=== PATIENT | male | born 1950 | race Caucasian/White ===

== ENCOUNTER 2019-02-11 08:48 | Day surgery (SDC) | payer MEDICARE ==
[~2019-02-11] VITALS: Ht 180.3 cm; Wt 90.7 kg
[~2019-02-11 08:48] MED LIST: CITALOPRAM20 MG PO; LOSARTAN POTASS50 MG PO; MULTI VIT PO
[2019-02-11 10:54] VITALS: BP 127/77
== END 2019-02-11 11:05 | disposition home or self-care (01) ==
LOC: ENDO 08:48
PROVIDERS: ATTEND Surgery
PROC: 0DJD8ZZ Inspection of Lower Intestinal Tract, Via Natural or Artificial Opening Endoscopic (ICD-10-PCS; principal; 2019-02-11)
DX: Z12.11 Encounter for screening for malignant neoplasm of colon (principal); F17.200 Nicotine dependence, unspecified, uncomplicated

== ENCOUNTER → 2019-12-04 | Day surgery (SDC) | payer MEDICARE ==
[~2019-12-04] MED LIST changes: +AMLODIPINE BESY10 MG PO; +CITALOPRAM40 M1 PO; +LIPITOR20 M1 PO; +PERCOCET 10/31 COMBO PO
[2019-12-04 10:49] LABS: COCAINE NEGATIVE (NEGATIVE); TETRAHYDROCANNABIONOL POSITIVE (NEGATIVE)
[2019-12-04 10:50] LABS: BARBITURATES NEGATIVE (NEGATIVE); METHADONE NEGATIVE (NEGATIVE); OXCYCODONE NEGATIVE (NEGATIVE); TRICYLIC ANTIDEPRESSANTS NEGATIVE (NEGATIVE)
== END | disposition home or self-care (01) ==
PROVIDERS: Urology
PROC: 0TBB8ZX Excision of Bladder, Via Natural or Artificial Opening Endoscopic, Diagnostic (ICD-10-PCS; principal; 2019-12-04)
PROC: 0T778DZ Dilation of Left Ureter with Intraluminal Device, Via Natural or Artificial Opening Endoscopic (ICD-10-PCS; 2019-12-04)
DX: C67.8 Malignant neoplasm of overlapping sites of bladder (principal); I10 Essential (primary) hypertension; F17.200 Nicotine dependence, unspecified, uncomplicated
CPT/HCPCS: J0131; J2710; Q9967

== ENCOUNTER 2020-07-29 06:44 | Day surgery (SDC) | payer MEDICARE ==
[2020-07-29 10:20] VITALS: BP 112/69
== END 2020-07-29 10:35 | disposition home or self-care (01) ==
LOC: ORM 06:44
PROVIDERS: ATTEND Urology
PROC: 0TBB8ZX Excision of Bladder, Via Natural or Artificial Opening Endoscopic, Diagnostic (ICD-10-PCS; principal; 2020-07-29)
PROC: 0T778DZ Dilation of Left Ureter with Intraluminal Device, Via Natural or Artificial Opening Endoscopic (ICD-10-PCS; 2020-07-29)
PROC: BT14ZZZ Fluoroscopy of Kidneys, Ureters and Bladder (ICD-10-PCS; 2020-07-29)
PROC: 0W3R8ZZ Control Bleeding in Genitourinary Tract, Via Natural or Artificial Opening Endoscopic (ICD-10-PCS; 2020-07-29)
DX: D09.0 Carcinoma in situ of bladder (principal); I10 Essential (primary) hypertension; F17.200 Nicotine dependence, unspecified, uncomplicated; Z20.828 Contact with and (suspected) exposure to other viral communicable diseases
CPT/HCPCS: Q9967

== ENCOUNTER 2020-11-11 06:08 | Day surgery (SDC) | payer MEDICARE ==
[~2020-11-11] VITALS: Ht 181.6 cm; Wt 95.3 kg
[2020-11-11 09:43] VITALS: BP 104/69
== END 2020-11-11 10:20 | disposition home or self-care (01) ==
LOC: ORM 06:08
PROVIDERS: ATTEND Urology
PROC: 0TBB8ZX Excision of Bladder, Via Natural or Artificial Opening Endoscopic, Diagnostic (ICD-10-PCS; principal; 2020-11-11)
PROC: 0T5B8ZZ Destruction of Bladder, Via Natural or Artificial Opening Endoscopic (ICD-10-PCS; 2020-11-11)
PROC: 3E1K88X Irrigation of Genitourinary Tract using Irrigating Substance, Via Natural or Artificial Opening Endoscopic, Diagnostic (ICD-10-PCS; 2020-11-11)
DX: N30.80 Other cystitis without hematuria (principal); I10 Essential (primary) hypertension; E78.00 Pure hypercholesterolemia, unspecified; F32.9 Major depressive disorder, single episode, unspecified; F17.200 Nicotine dependence, unspecified, uncomplicated; Z85.51 Personal history of malignant neoplasm of bladder; Z20.822 Contact with and (suspected) exposure to COVID-19
CPT/HCPCS: C1769; J0131

== ENCOUNTER 2022-03-15 18:00 | Observation (INO) | payer MEDICARE ==
[~2022-03-15] VITALS: Ht 180.3 cm; Wt 95.0 kg
[2022-03-15 18:26] VITALS: BP 134/77
[2022-03-15 18:31] VITALS: BP 145/85
[2022-03-15 18:50] LABS: HEMATOCRIT 42.7 % (39.0-50.0); HEMOGLOBIN 14.8 g/dl (14.0-18.0); IMMATURE GRANULOCYTES 0.2 % (0.0-5.0); MEAN CORPUSCULAR HGB 34.7 pG CALC (26.0-32.0); MEAN CORPUSCULAR HGB CONC 34.7 g/dL CAL (32.0-36.0); NEUT# 2.77 thou/uL (1.82-7.42); RED BLOOD COUNT 4.27 mill/uL (4.70-6.10); RED CELL DISTRI WIDTH 11.9 % (11.5-15.5)
[2022-03-15 19:07] LABS: ALBUMIN 4.2 g/dL (3.2-5.0); ALKALINE PHOSPHATASE 97 u/l (38-126); BUN 17 mg/dL (8-23); BUN/CREATININE RATIO 19 (12-20 (CALC)); CHLORIDE 103 mmol/l (95-108); CREATININE 0.9 mg/dL (0.7-1.3); GFR > 60 ML/MIN (>=60 (CALC)); GFR FOR AFR.AMER. > 60 ML/MIN (>=60 (CALC)); POTASSIUM 4.3 mmol/l (3.5-5.1); SGOT/AST 27 u/l (19-48); SODIUM 137 mmol/l (137-146); TOTAL PROTEIN 7.5 g/dL (6.3-8.2)
[2022-03-15 19:14] LABS: ANION GAP 14 (6-22 (CALC)); BILIRUBIN, TOTAL 0.5 mg/dL (0.0-1.4); CARBON DIOXIDE 24 mmol/l (22-30)
[2022-03-15 20:48] VITALS: BP 124/73
[2022-03-15 21:00] VITALS: BP 112/68
[2022-03-15 22:00] VITALS: BP 120/69
[2022-03-15 22:30] VITALS: BP 125/74
[2022-03-16 02:26] VITALS: BP 166/79
[2022-03-16 05:44] LABS: HEMATOCRIT 40.7 % (39.0-50.0); HEMOGLOBIN 14.1 g/dl (14.0-18.0); MEAN CORPUSCULAR HGB 34.6 pG CALC (26.0-32.0); MEAN CORPUSCULAR HGB CONC 34.6 g/dL CAL (32.0-36.0); RED BLOOD COUNT 4.07 mill/uL (4.70-6.10); RED CELL DISTRI WIDTH 11.9 % (11.5-15.5)
[2022-03-16 06:01] LABS: BUN 12 mg/dL (8-23); BUN/CREATININE RATIO 18 (12-20 (CALC)); CARBON DIOXIDE 20 mmol/l (22-30); CHLORIDE 102 mmol/l (95-108); CREATININE 0.7 mg/dL (0.7-1.3); GFR > 60 ML/MIN (>=60 (CALC)); GFR FOR AFR.AMER. > 60 ML/MIN (>=60 (CALC)); MAGNESIUM 2.1 mg/dL (1.6-2.3); SODIUM 136 mmol/l (137-146)
[2022-03-16 06:03] LABS: ANION GAP 18 (6-22 (CALC)); POTASSIUM 4.1 mmol/l (3.5-5.1)
[2022-03-16 07:00] VITALS: BP 132/74
[2022-03-16 11:00] VITALS: BP 125/71
[2022-03-16] MEDS ORDERED: MEDDOSEPAK PO ×2 (12:40→14:51)
[2022-03-16] MEDS ORDERED: ZITHROMAX250 MG PO ×2 (12:40→14:51)
[2022-03-16] MEDS ORDERED: ALBUTEROL108 MCG/AC IN (12:41)
[2022-03-16] MEDS ORDERED: VENTOLIN HFA108 MCG IN (14:51)
== END 2022-03-16 13:15 | disposition home or self-care (01) ==
LOC: ED 18:00 → ED-I 20:05 → ED 21:25 → MS2 21:26
PROVIDERS: Family Medicine; ADMIT Hospitalist; ATTEND Hospitalist
DX: J20.9 Acute bronchitis, unspecified (principal); J43.9 Emphysema, unspecified; I10 Essential (primary) hypertension; E78.5 Hyperlipidemia, unspecified; F32.A Depression, unspecified; Z87.891 Personal history of nicotine dependence; Z20.822 Contact with and (suspected) exposure to COVID-19
CPT/HCPCS: J1650; Q9967

== ENCOUNTER 2022-08-24 08:27 | Day surgery (SDC) | payer MEDICARE ==
[~2022-08-24 08:27] MED LIST changes: +ALBUTEROL108 MCG/AC IN; +MEDDOSEPAK PO; +VENTOLIN HFA108 MCG IN; +ZITHROMAX250 MG PO
[2022-08-24 14:42] VITALS: BP 141/77
== END 2022-08-24 12:48 | disposition home or self-care (01) ==
LOC: ORM 08:27
PROVIDERS: ATTEND Urology
PROC: 0TBB8ZX Excision of Bladder, Via Natural or Artificial Opening Endoscopic, Diagnostic (ICD-10-PCS; principal; 2022-08-24)
DX: C67.8 Malignant neoplasm of overlapping sites of bladder (principal); I10 Essential (primary) hypertension; F32.A Depression, unspecified; E78.00 Pure hypercholesterolemia, unspecified; N52.9 Male erectile dysfunction, unspecified; F17.200 Nicotine dependence, unspecified, uncomplicated
CPT/HCPCS: J1956; Q9967

== ENCOUNTER 2023-06-21 10:44 | Day surgery (SDC) | payer MEDICARE ==
[~2023-06-21] VITALS: Ht 180.3 cm; Wt 94.8 kg
[~2023-06-21 10:44] MED LIST changes: +LEXAPRO10 MG PO
[2023-06-21 13:15] VITALS: BP 122/75
== END 2023-06-21 13:05 | disposition home or self-care (01) ==
LOC: ORM 10:44
PROVIDERS: ATTEND Urology
PROC: 0TBB8ZX Excision of Bladder, Via Natural or Artificial Opening Endoscopic, Diagnostic (ICD-10-PCS; principal; 2023-06-21)
DX: C67.5 Malignant neoplasm of bladder neck (principal); I10 Essential (primary) hypertension; E78.00 Pure hypercholesterolemia, unspecified; F32.A Depression, unspecified; F17.200 Nicotine dependence, unspecified, uncomplicated; Z92.21 Personal history of antineoplastic chemotherapy
CPT/HCPCS: J1956; Q9966

== ENCOUNTER 2024-08-14 09:43 | Emergency (ER) | payer MEDICARE ==
[~2024-08-14] VITALS: Ht 180.3 cm; Wt 95.0 kg
[2024-08-14] MEDS ORDERED: MEDDOSEPAK PO (10:58)
[2024-08-14 11:04] VITALS: BP 145/80
== END 2024-08-14 11:22 | disposition home or self-care (01) ==
LOC: ED 09:43
DX: J02.9 Acute pharyngitis, unspecified (principal); I10 Essential (primary) hypertension; E78.5 Hyperlipidemia, unspecified; F41.9 Anxiety disorder, unspecified; Z20.822 Contact with and (suspected) exposure to COVID-19